=== PATIENT | male | born 1965 | race Caucasian/White ===

== ENCOUNTER 2016-11-15 20:54 | Emergency (ER) | payer OTHER ==
[~2016-11-15] VITALS: Ht 177.8 cm; Wt 112.7 kg
[~2016-11-15 20:54] MED LIST: ALBUAER2 INH; AMT25 PO; CLX/20 PO; DXY50 PO; LEVO112T4 PO; NCDT21 TD; OMEP20CA9 PO
[2016-11-15 21:14] VITALS: TEMP 36.8; Ht 177.8 cm; Wt 112.7 kg
[2016-11-15] MEDS ORDERED: DiphenhydrAMINE HCL 50 MG/ML VIAL IV STA (21:35)
[2016-11-15] MEDS ORDERED: KETOROLAC TROMETHAMINE 30 MG/ML VIAL IV STA (21:35)
[2016-11-15] MEDS ORDERED: FAMOTIDINE 20MG/102 ML D5W IV STA (21:35)
[2016-11-15] MEDS ORDERED: DEXAMETHASONE SOD INJ 10 MG/ML VIAL IV ONE (21:45)
[2016-11-15] MEDS ORDERED: SNG10 PO (21:58)
[2016-11-15] MEDS ORDERED: FLUT1INH INH (21:58)
[2016-11-15] MEDS ORDERED: SPRIN/30 INH (21:58)
[2016-11-15] MEDS ORDERED: VNTHFA/IN INH (21:58)
[2016-11-15] MEDS ORDERED: SYN137 PO (21:58)
[2016-11-15] MEDS ORDERED: BUPR150T5 PO (21:58)
[2016-11-15] MEDS ORDERED: AMIT50TA3 PO (21:58)
[2016-11-15] MEDS ORDERED: CITA40TA4 PO (21:58)
[2016-11-15] MEDS ORDERED: METH4PAK PO (22:02)
[2016-11-15] MEDS ORDERED: CEPH500C2 PO (22:02)
--- NOTE | 2016-11-15 22:04 | EMERGENCY ROOM VISIT NOTE ---
History First contact with patient: 21:21 Chief Complaint: ALLERGIC REACTION Stated Complaint: SWELLING OF HEAD History of Present Illness The patient is a 51 year old male who presents to the Emergency Room with complaints of allergic reaction to hair dye. The patient states that he applied hair dye to his hair on his head on Tuesday night and shortly after he started with itchy spots on his head as well as redness. This has now progressed to swelling of his head and it is painful. The patient denies any throat or chest tightness. The patient states that he had a similar reaction in the past when he put hair dye on his gonzalez. Review of Systems 6 system review was performed and was negative unless stated otherwise in history of present illness. Past Medical/Surgical History Medical Problems: (1) GERD (gastroesophageal reflux disease) (2) Hypothyroid (3) Tobacco use disorder Family History Lung disease Social History Smoking Status: Current Every Day Smoker Drug Use: none Marital Status: in relationship Housing Status: lives with family Occupation Status: employed Current/Historical Medications Scheduled Amitriptyline HCl (Amitriptyline HCl), 25 MG PO HS Citalopram (Citalopram Hydrobromide), 20 MG PO DAILY Doxycycline Hyclate (Doxycycline Hyclate), 50 MG PO DAILY Levothyroxine Sodium (Levothyroxine Sodium), 112 MCG PO DAILY Nicotine (Nicotine), 1 PATCH TD QAM Omeprazole (Prilosec), 20 MG PO QAM Scheduled PRN Albuterol (Ventolin), 2 PUFFS INH Q4 PRN for SOB/Wheezing Allergies Coded Allergies: No Known Allergies (Verified , 11/21/14) Physical Exam Vital Signs Date Time Temp Pulse Resp B/P Pulse Ox O2 Delivery O2 Flow Rate FiO2 11/15/16 21:14 36.8 103 20 136/82 96 Room Air Physical Exam GENERAL: 51-year-old white male appears in no acute distress. MENTAL Status: Alert and oriented 3. SCALP:: The patient has mild edema of the entire scalp. The patient has patches of intense erythema, vesicles and scaling. The patches are mostly over the entire top of his head and extending to the base of his skull. There is a few erythematous papules on the forehead. THROAT: No erythema or edema noted. Airway is adequate. NECK: Supple, no lymphadenopathy noted. LUNGS: Clear to auscultation without wheezes rales or rhonchi. CARDIAC: Regular rate and rhythm without murmur. Medical Decision & Procedures ED Course Patient was evaluated. IV access was obtained. The patient was given Decadron 10 mg IV, Benadryl 2 mg IV and Toradol 30 mg IV. He was also given Pepcid 20 mg IV. The patient was reevaluated was feeling better. The patient was discharged home in stable condition. Medical Decision Differential diagnosis include allergic contact dermatitis, systemic allergic reaction Impression Primary Impression: Allergic contact dermatitis due to dyes Departure Information Dispostion Home / Self-Care Condition GOOD Prescriptions Cephalexin Monohydrate (KEFLEX) 500 Mg Cap 500 MG PO QID for 10 Days, #40 CAP Prov: Mari Valles PA-C 11/15/16 Methylprednisolone (MEDROL DOSEPAK) 4 Mg Fredrick 0 PO DAILY, #1 PKT Prov: Mari Valles PA-C 11/15/16 Referrals Yonatan Wesley M.D. (PCP) Forms HOME CARE DOCUMENTATION FORM, IMPORTANT VISIT INFORMATION Patient Instructions My [facility] Additional Instructions Keep your head is cool and dry as possible. If he used shampoo on your hair only use baby shampoo until skin has healed. Take Benadryl 25 mg every 6 hours as needed for itch. Take Medrol dosepak as prescribed. Take Keflex as prescribed. Do not use any hair dyes in the future. Follow-up with your family doctor in 2 days for reevaluation.
[2016-11-15 22:47] VITALS: BP 133/91; PULSE 99; O2SAT 96
== END 2016-11-15 22:47 | disposition home or self-care (01) ==
LOC: C.EDB 20:55 → C.EDD 22:47
DX: L23.4 Allergic contact dermatitis due to dyes (principal); K21.9 Gastro-esophageal reflux disease without esophagitis; F17.200 Nicotine dependence, unspecified, uncomplicated; E03.9 Hypothyroidism, unspecified

== ENCOUNTER 2018-04-13 18:41 | Emergency (ER) | payer OTHER ==
[~2018-04-13] VITALS: Ht 177.8 cm; Wt 96.7 kg
[~2018-04-13 18:41] MED LIST changes: -ALBUAER2 INH; +AMIT50TA3 PO; -AMT25 PO; +BUPR150T5 PO; -CLX/20 PO; -DXY50 PO; -LEVO112T4 PO; -NCDT21 TD; +SYN137 PO
[2018-04-13 18:53] VITALS: TEMP 37; Ht 177.8 cm; Wt 96.7 kg
[2018-04-13] MEDS ORDERED: ALBUT/IPRATROP 3MG/0.5MG NEB 3 ML VIAL INH STA (19:19)
--- NOTE | 2018-04-13 19:44 | DIAGNOSTIC IMAGING REPORT ---
SINGLE VIEW CHEST CLINICAL HISTORY: Cough. FINDINGS: An AP, portable, upright chest radiograph is compared to study dated 12/25/2014 and correlated with chest CT dated 11/12/2014. The examination is degraded by portable technique and apical lordotic positioning. The cardiomediastinal silhouette is unremarkable. Emphysema and chronic interstitial thickening are similar to previous. There is no airspace consolidation identified typical for pneumonia. A small right pleural effusion is observed with associated atelectasis. No pneumothorax is seen. The skeletal structures are osteopenic. There are healed left-sided rib fractures. IMPRESSION: 1. Emphysema 2. There is a small right pleural effusion with associated atelectasis. This has also been seen on prior examinations. Electronically signed by: Martin Farfan M.D. 04/13/2018 7:42 PM Dictated Date/Time: 04/13/2018 7:41 PM
--- NOTE | 2018-04-13 19:57 | EMERGENCY ROOM VISIT NOTE ---
History Report prepared by Danish: Jose Miguel Ann Under the Supervision of: Dr. Cas Esquivel D.O. First contact with patient: 19:14 Chief Complaint: NEURO SYMPTOMS Stated Complaint: FINGERS ON LEFT HAND NUMB, BREATHING DIFFICULTY History of Present Illness The patient is a 53 year old male who presents to the Emergency Room with complaints of constant numbness in the 1st, 2nd, and 3rd digits of his left hand that began a month ago after he hit his left elbow. Patient adds he gets intermittent numbness in the back of knees. He adds he has been experiencing worsening dyspnea and coughs recently. Past medical history includes COPD. Patient denies a history of carpal tunnel syndrome. Patient states his PCP is Dr. Wesley and that he has not seen him for his symptoms. Patient states he takes medications for his history of heartburn, anxiety, and thyroid problems. He adds he uses a nebulizer and inhaler. He states smokes and uses alcohol "a little". Patient denies headaches. 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 Source of History: patient Onset: A month ago Position: hand (left) Quality: numbness Timing: constant Modifying Factors (Relieving): other (None) Associated Symptoms: + cough, + SOB, No headache Review of Systems See HPI for pertinent positives & negatives. A total of 10 systems reviewed and were otherwise negative. Past Medical & Surgical Medical Problems: (1) GERD (gastroesophageal reflux disease) (2) Hypothyroid (3) Tobacco use disorder Family History Lung disease Social History Smoking Status: Current Every Day Smoker Drug Use: none Marital Status: in relationship Housing Status: lives with family Occupation Status: employed Current/Historical Medications Scheduled Amitriptyline HCl (Amitriptyline HCl), 50 MG PO HS Celecoxib (Celecoxib), 200 MG PO QAM Citalopram (Citalopram Hydrobromide), 40 MG PO DAILY Doxycycline Hyclate (Doxycycline Hyclate), 50 MG PO BID Fluticasone Furoate-Vilanterol (Breo Ellipta), 1 PUFF INH DAILY Ketoconazole (Ketoconazole), 1 APPLN TOP UD Levothyroxine Sodium (Levothyroxine Sodium), 150 MCG PO DAILY Montelukast Sod (Montelukast Sodium), 10 MG PO DAILY Omeprazole (Prilosec), 20 MG PO BID Tiotropium [place] (Spiriva Handihaler), 1 CAP INH DAILY Trazodone Hcl (Trazodone), 50 MG PO HS Triamcinolone Acet (Aristocort 0.1%), 1 APPLN TOP BID Scheduled PRN Albuterol Hfa (Ventolin Hfa), 2 PUFFS INH Q4H PRN for Shortness of Breath Guaifenesin/Codeine (Robitussin-Ac Syrup), 5 ML PO Q4 PRN for Cough Ipratropium-Albuterol (Duoneb), 1 VIAL NEB QID PRN for SOB/Wheezing Metronidazole (Topical) (Metronidazole), 1 APPLN TOP BID PRN for ROSACEA Allergies Uncoded Allergies: HAIR DYE (Adverse Reaction, Severe, BURNT FACE, 04/13/18) Physical Exam Vital Signs Date Time Temp Pulse Resp B/P (MAP) Pulse Ox O2 Delivery O2 Flow Rate FiO2 04/13/18 20:34 75 136/83 99 04/13/18 18:53 37.0 80 18 155/72 98 Room Air Physical Exam GENERAL: Patient is awake, alert, and in no acute distress. Patient is resting comfortably and showing no signs of anxiety EYES: The conjunctivae are clear. The pupils are round and reactive. EARS, NOSE, MOUTH AND THROAT: The nose is without any evidence of any deformity. Mucous membranes are moist. Tongue is midline NECK: The neck is nontender and supple. RESPIRATORY: Scattered rhonchi throughout with expiratory wheezing in both upper lung evangelista. No tachypnea or conversational dyspnea appreciated otherwise normal respiratory effort is noted. There is no evidence of rales to auscultation. CARDIOVASCULAR: Regular rate and rhythm noted. There no murmurs rubs or gallops normal S1 normal S2 GASTROINTESTINAL: The abdomen is soft. Bowel sounds are present in all quadrants. Abdomen is nontender. MUSCULOSKELETAL/EXTREMITIES: There is no evidence of gross deformity. Full range of motion is noted in the hips and shoulders. SKIN: There is no obvious evidence of any rash. There are no petechiae, pallor or cyanosis noted. NEUROLOGIC: Patient is awake alert and oriented x3. Biceps tendon reflex 2+ bilaterally. Subjective numbness in the left palmar aspect of the 1st, 2nd, and 3rd digits otherwise strength is symmetric. Patellar reflexes are 2+ bilaterally. Medical Decision & Procedures ER Provider Diagnostic Interpretation: Radiology results as stated below per my review and radiologist interpretation: SINGLE VIEW CHEST CLINICAL HISTORY: Cough. FINDINGS: An AP, portable, upright chest radiograph is compared to study dated 12/25/2014 and correlated with chest CT dated 11/12/2014. The examination is degraded by portable technique and apical lordotic positioning. The cardiomediastinal silhouette is unremarkable. Emphysema and chronic interstitial thickening are similar to previous. There is no airspace consolidation identified typical for pneumonia. A small right pleural effusion is observed with associated atelectasis. No pneumothorax is seen. The skeletal structures are osteopenic. There are healed left-sided rib fractures. IMPRESSION: 1. Emphysema 2. There is a small right pleural effusion with associated atelectasis. This has also been seen on prior examinations. Electronically signed by: Mratin Farfan M.D. 04/13/2018 7:42 PM Medications Administered Medications (Trade) Dose Ordered Sig/Kassidy Route Start Time Stop Time Status Last Admin Dose Admin Albuterol/ Ipratropium (Duoneb) 3 ml NOW STAT INH 04/13/18 19:19 04/13/18 19:20 DC 04/13/18 19:30 3 ML ED Course 1909: The patient was evaluated in room B8. A complete history and physical examination were performed. 1918: Duoneb 3ml INH 2022: Upon reevaluation, the patient is resting comfortably. I informed him to call his PCP to schedule a follow up appointment and referral to a hand specialist for surgical intervention. I discussed the results and treatment plan with him. He verbalized agreement of the treatment plan. He was discharged home. Medical Decision Prior records/ancillary studies reviewed. Triage Nursing notes reviewed. Differential diagnosis: Etiologies such as infections, reactive airway disease, pneumonia, pneumothorax , COPD, CHF, cardiac ischemia, pulmonary embolism, musculoskeletal, gastrointestinal, as well as others were entertained. The patient is a 53-year-old male who presented to emergency department multiple complaints including cough and numbness in his left hand. The patient' s physical exam was not consistent with respiratory failure. He was treated with bronchodilator therapy and chest x-ray did not reveal any acute disease. The patient's hand exam appear to be consistent with a median nerve entrapment. I do feel this is likely consistent with carpal tunnel. The patient was placed into a splint. He was encouraged to call his family doctor to schedule a follow-up appointment with an head orthopedic team physician. He is also encouraged to rest and avoid any strenuous activity. He was also encouraged to return to the emergency department immediately if symptoms change worsen or the need arises. Medication Reconcilliation Current Medication List: was personally reviewed by me Blood Pressure Screening Patient's blood pressure: Elevated blood pressure Blood pressure disposition: Elevated BP felt to be situational Impression Primary Impression: COPD (chronic obstructive pulmonary disease) Additional Impression: Carpal tunnel syndrome Scribe Attestation The scribe's documentation has been prepared under my direction and personally reviewed by me in its entirety. I confirm that the note above accurately reflects all work, treatment, procedures, and medical decision making performed by me. Departure Information Dispostion Home / Self-Care Referrals Yonatan Wesley M.D. (PCP) Forms HOME CARE DOCUMENTATION FORM, IMPORTANT VISIT INFORMATION, WORK / SCHOOL INSTRUCTIONS Patient Instructions My [facility] Additional Instructions Call your family doctor to schedule a follow-up appointment. He will likely require a referral to a hand specialist for surgical intervention. Continue all medications as prescribed. Try to avoid smoking as best you can Problem Qualifiers Primary Impression: COPD (chronic obstructive pulmonary disease) COPD type: unspecified COPD Qualified Codes: J44.9 - Chronic obstructive pulmonary disease, unspecified Additional Impression: Carpal tunnel syndrome Laterality: left Qualified Codes: G56.02 - Carpal tunnel syndrome, left upper limb
[2018-04-13] MEDS ORDERED: TRMCR130WC TOP (20:22)
[2018-04-13] MEDS ORDERED: CELE1CAP30 PO (20:22)
[2018-04-13] MEDS ORDERED: METR0.7536 TOP (20:22)
[2018-04-13] MEDS ORDERED: NZRSHM TOP (20:22)
[2018-04-13] MEDS ORDERED: LEVO150T9 PO (20:22)
[2018-04-13] MEDS ORDERED: AMT/50 PO (20:22)
[2018-04-13] MEDS ORDERED: GUAISYP4 PO (20:22)
[2018-04-13] MEDS ORDERED: TRAZ50TA35 PO (20:22)
[2018-04-13] MEDS ORDERED: DXY50 PO (20:22)
[2018-04-13] MEDS ORDERED: IPRA-64 NEB (20:22)
[2018-04-13 20:34] VITALS: BP 136/83; PULSE 75; O2SAT 99
[2018-04-13] MEDS ORDERED: SPRIN/30 INH (21:58)
[2018-04-13] MEDS ORDERED: CITA40TA4 PO (21:58)
[2018-04-13] MEDS ORDERED: SNG10 PO (21:58)
[2018-04-13] MEDS ORDERED: FLUT1INH INH (21:58)
[2018-04-13] MEDS ORDERED: VNTHFA/IN INH (21:58)
== END 2018-04-13 20:35 | disposition home or self-care (01) ==
LOC: C.EDB 18:44
DX: J44.9 Chronic obstructive pulmonary disease, unspecified (principal); G56.02 Carpal tunnel syndrome, left upper limb; F41.9 Anxiety disorder, unspecified; E03.9 Hypothyroidism, unspecified; F17.200 Nicotine dependence, unspecified, uncomplicated; Z79.51 Long term (current) use of inhaled steroids; Z79.899 Other long term (current) drug therapy; Z91.048 Other nonmedicinal substance allergy status